=== PATIENT | male | born 1980 | race Caucasian/White ===

== ENCOUNTER 2017-07-07 09:53 | Emergency (ER) | payer SELFPAY ==
[~2017-07-07] VITALS: Ht 167.6 cm; Wt 84.0 kg
[2017-07-07] MEDS: KETOROLAC 60MG/2ML VIAL IM ONE (12:26)
[2017-07-07 13:00] VITALS: BP 122/82
== END 2017-07-07 13:11 | disposition home or self-care (01) ==
LOC: ER 09:53
DX: M53.3 Sacrococcygeal disorders, not elsewhere classified (principal); M79.1 Myalgia
CPT/HCPCS: 96372; 99283; J1885